=== PATIENT | male | born 1950 | race Caucasian/White ===

== ENCOUNTER → 2017-03-21 | Outpatient (CLI) | payer MEDICARE, OTHER ==
[~2017-03-21] MED LIST: ASPI81TA28 PO; METO100T44 PO; MULT-506 PO; NXM/40 PO; OMEG10007 PO; POLYSOL4 OP; PRED-301 PO; ZNTT/150 PO; [UNRECOGNIZED DRUG - CODE] PO
[2017-03-21 13:12] LABS: BASO % 0.2 %; BASO ABS # 0.03 K/uL (0-0.2); COMPLETE YES; EOS % 1.1 %; HEMATOCRIT 43.2 % (42-52); IG% 0.4 %; LYMPH % 19.7 %; LYMPH ABS # 2.49 K/uL (1.2-3.4); MEAN CELL VOLUME 96.2 fL (80-100); MEAN CORPUSCULAR HEMOGLOBIN 31.4 pg (25-34); MEAN CORPUSCULAR HGB CONC 32.6 g/dl (32-36); MEAN PLATELET VOLUME 10.2 fL (7.4-10.4); MONO % 5.4 %; NEUT % 73.2 %; PLATELET COUNT 107 K/uL (130-400); RED BLOOD COUNT 4.49 M/uL (4.7-6.1); WHITE BLOOD COUNT 12.67 K/uL (4.8-10.8)
[2017-03-21 13:24] LABS: CALCIUM 9.5 mg/dl (8.5-10.1)
[2017-03-21 13:32] LABS: ALT/SGPT 29 U/L (12-78); BLOOD UREA NITROGEN 19 mg/dl (7-18); BUN/CREATININE RATIO 17.3 (10-20); CARBON DIOXIDE 28 mmol/L (21-32); CHLORIDE 106 mmol/L (98-107); CHOLESTEROL 80 mg/dl (0-200); GLUCOSE 87 mg/dl (70-99); POTASSIUM 3.7 mmol/L (3.5-5.1); SODIUM 140 mmol/L (136-145); TRIGLYCERIDES 121 mg/dl (0-150); VERY LOW DENSITY LIPOPROT CALC 24 mg/dl
[2017-03-21 13:35] LABS: ALKALINE PHOSPHATASE 65 U/L (45-117); AST/SGOT 25 U/L (15-37); CHOLESTEROL/HDL RATIO 2.4; HDL CHOLESTEROL 33 mg/dl; LDL CHOLESTEROL CALCULATED 23 mg/dl
== END | disposition home or self-care (01) ==
LOC: C.LABMFLN 08:18
PROVIDERS: ATTEND Family Medicine
DX: K21.9 Gastro-esophageal reflux disease without esophagitis (principal); E78.5 Hyperlipidemia, unspecified

== ENCOUNTER → 2017-08-15 | Day surgery (SDC) | payer MEDICARE ==
[2017-07-31 11:45] VITALS: Ht 172.7 cm; Wt 77.3 kg
[~2017-08-15] VITALS: Ht 172.7 cm; Wt 77.3 kg
[~2017-08-15] MED LIST changes: +EpHEDrine SULFATE INJ 50 MG/ML AMP ONE; +FENTANYL CITRATE INJ 50 MCG/1 ML 2 ML VIAL ONE; +LIDOCAINE HCL 2% 2 ML VIAL (20MG/ML) ONE; -METO100T44 PO; +METO1TAB69 PO; +PHENYLEPHRINE HCL INJ 10 MG/ML VIAL ONE; +PROPOFOL IV EMULSION 10 MG/ML 20 ML VIAL IV ONE
--- NOTE | 2017-08-15 13:58 | Endo History and Physical ---
History & Physical Date of Service: Aug 15, 2017. Chief Complaint: Reflux, screening Referring Physician: Dr. Wilda Gonzalez History of Present Illness For EGD and colonoscopy Past Surgical History Hx Cardiac Surgery: No Hx Internal Defibrillator: No Hx Pacemaker: No Hx Abdominal Surgery: No Hx of Implantable Prosthesis: No Hx Post-Op Nausea and Vomiting: No Hx Cancer Surgery: No Hx Thoracic Surgery: Yes (MEDIASTINOSCOPY) Hx Orthopedic: No Hx Urinary Tract Surgery: No Family History None Social History Smoking Status: Never Smoker Hx Substance Use: No Hx Alcohol Use: Yes (1 DRINK/WEEK) Allergies Coded Allergies: Ibuprofen (Verified Allergy, Unknown, ITCHY, RED RASH, 08/15/17) Current Medications Reported Home Medications Medications Dose Route/Sig Max Daily Dose Days Date Category Dose Instructions Systane (Polyethylene Glycol-Propylene) 1 Thania Thania 1 Drops OP QID PRN 07/31/17 Reported Nifedipine 10 Mg Cap 1 Cap PO DAILY PRN 07/31/17 Reported Multivitamin (Multivitamins) Tab 1 Tab PO QAM 07/31/17 Reported Aspirin Ec (Aspirin) 81 Mg Tab 81 Mg PO QAM 07/31/17 Reported [place]-3 (Fish Oil) 1 Ea Cap 1 Cap PO BID 07/31/17 Reported Prednisone 5 Mg Tab 5 Mg PO QAM 07/31/17 Reported Toprol-Xl (Metoprolol Succinate) 100 Mg Tabcr 200 Mg PO QAM 07/31/17 Reported Zantac (Ranitidine HCl) 150 Mg Tab 150 Mg PO Q2D 07/31/17 Reported HS - ALTERNATING WITH NEXIUM Nexium (Esomeprazole Magnesium) 40 Mg Capcr 40 Mg PO Q2D 07/31/17 Reported HS - ALTERNATING WITH ZANTAC Vital Signs Weight (Kilograms): 77.27 Height (Feet): 5 Height (Inches): 8 Date Time Temp Pulse Resp B/P (MAP) Pulse Ox O2 Delivery O2 Flow Rate FiO2 08/15/17 13:20 36.5 92 16 127/74 (91) 94 Room Air Physical Exam General Appearance: WD/WN Respiratory/Chest: Respiratory effort: no dyspnea Cardiovascular: Heart Auscultation: RRR Abdomen: Inspection & Palpation: soft Assessment and Plan GERD and screening for EGD and colonoscopy
--- NOTE | 2017-08-15 14:22 | Discharge Instructions ---
Endoscopy Patient Instructions Date / Procedure(s) Performed Aug 15, 2017. Colonoscopy, EGD Allergy Information Coded Allergies: Ibuprofen (Verified Allergy, Unknown, ITCHY, RED RASH, 08/15/17) Discharge Date / Findings Aug 15, 2017. Diverticulosis, polyp, normal EGD Medication Instructions Stopped Medication(s): Patient was told to not take his fish oil and aspirin. Restart Stopped Medication(s): resume meds Reported Home Medications Medications Dose Route/Sig Max Daily Dose Days Date Category Dose Instructions Systane (Polyethylene Glycol-Propylene) 1 Thania Thania 1 Drops OP QID PRN 07/31/17 Reported Nifedipine 10 Mg Cap 1 Cap PO DAILY PRN 07/31/17 Reported Multivitamin (Multivitamins) Tab 1 Tab PO QAM 07/31/17 Reported Aspirin Ec (Aspirin) 81 Mg Tab 81 Mg PO QAM 07/31/17 Reported [place]-3 (Fish Oil) 1 Ea Cap 1 Cap PO BID 07/31/17 Reported Prednisone 5 Mg Tab 5 Mg PO QAM 07/31/17 Reported Toprol-Xl (Metoprolol Succinate) 100 Mg Tabcr 200 Mg PO QAM 07/31/17 Reported Zantac (Ranitidine HCl) 150 Mg Tab 150 Mg PO Q2D 07/31/17 Reported HS - ALTERNATING WITH NEXIUM Nexium (Esomeprazole Magnesium) 40 Mg Capcr 40 Mg PO Q2D 07/31/17 Reported HS - ALTERNATING WITH ZANTAC Provider Instructions Activity Restrictions - No exercising or heavy lifting for 24 hours. - Do not drink alcohol the day of the procedure. - Do not drive a car or operate machinery until the day after the procedure. - Do not make any important decisions or sign important papers in 24 hours after the procedure. Following Day: - Return to full activity which may include returning to work/school. Diet Start your diet with liquids and light foods (jello, soup, juice, toast). Then eat your usual diet if not nauseated. Treatment For Common After Affects For mild abdominal pain, bloating, or excessive gas: - Rest - Eat lightly - Lie on right side Follow-Up Information Follow-up with Dr. Wilda Gonzalez as scheduled Anesthesia Information What You Should Know You have had a procedure that required some medicine to reduce anxiety and discomfort. This treatment is called moderate sedation. After receiving the treatment, you may be sleepy, but you will be able to breathe on your own. The effects of the treatment may last for several hours. Follow these instructions along with Activity/Diet recommendations noted above: * Do NOT do anything where dizziness or clumsiness would be dangerous. * Rest quietly at home today, then you can be up and about tomorrow. * Have a responsible person stay with you the rest of today. * You may have had an I.V. today. If so, you may take the dressing off later today. Recommendations Call your doctor if: * Trouble breathing * Continuous vomiting for more than 24 hours * Temperature above 101 degrees * Severe abdominal pain or bloating * Pain not relieved by pain medicine ordered * There is increased drainage or redness from any incision * A large amount of rectal bleeding greater than 2-3 tablespoons. (If you had a polyp/s removed or have hemorrhoids, a small amount of blood - from the rectum is to be expected.) * You have any unanswered questions or concerns. IN THE EVENT OF A SERIOUS EMERGENCY, GO TO THE NEAREST EMERGENCY ROOM Your discharge instructions were prepared by provider Reed Scales. Patient Instructions Signature Page Blayne Conley Patient (or Guardian) Signature/Date: I have read and understand the instructions given to me by my caregivers. Caregiver/RN/Doctor Signature/Date: The above-named patient and/or guardian has received patient instructions on this date. + Original Patient Signature Page (only) stays with chart. Please make copy for patient.
--- NOTE | 2017-08-15 14:26 | GI REPORT ---
Procedure Date: 08/15/2017 1:30 PM Procedure: Upper GI endoscopy Indications: Heartburn, Suspected gastro-esophageal reflux disease Medicines: Fentanyl 50 micrograms IV, Propofol total dose 150 mg IV Complications: No immediate complications. Estimated Blood Loss: Estimated blood loss: none. Procedure: Pre-Anesthesia Assessment: - Prior to the procedure, a History and Physical was performed, and patient medications, allergies and sensitivities were reviewed. The patient's tolerance of previous anesthesia was reviewed. - The risks and benefits of the procedure and the sedation options and risks were discussed with the patient. All questions were answered and informed consent was obtained. After obtaining informed consent, the endoscope was passed under direct vision. Throughout the procedure, the patient's blood pressure, pulse, and oxygen saturations were monitored continuously. The On-site loaner was introduced through the mouth, and advanced to the second part of duodenum. The upper GI endoscopy was accomplished without difficulty. The patient tolerated the procedure well. Findings: The esophagus was normal. The stomach was normal. The examined duodenum was normal. Impression: - Normal esophagus. - Normal stomach. - Normal examined duodenum. - No specimens collected. Recommendation: - Discharge patient to home (ambulatory). - Continue present medications. - Return to primary care physician PRN. Reed Scales M.D. Reed Scales MD 08/15/2017 2:24:57 PM This report has been signed electronically. Note Initiated On: 08/15/2017 1:30 PM I attest to the content of the Intraoperative Record and orders documented therein, exceptions below
--- NOTE | 2017-08-15 14:27 | GI REPORT ---
Procedure Date: 08/15/2017 1:29 PM Procedure: Colonoscopy Indications: Screening for colorectal malignant neoplasm Medicines: Fentanyl 50 micrograms IV, Propofol total dose 150 mg IV Complications: No immediate complications. Estimated Blood Loss: Estimated blood loss was minimal. Procedure: Pre-Anesthesia Assessment: - Prior to the procedure, a History and Physical was performed, and patient medications, allergies and sensitivities were reviewed. The patient's tolerance of previous anesthesia was reviewed. - The risks and benefits of the procedure and the sedation options and risks were discussed with the patient. All questions were answered and informed consent was obtained. After I obtained informed consent, the scope was passed under direct vision. Throughout the procedure, the patient's blood pressure, pulse, and oxygen saturations were monitored continuously. The scope was introduced through the anus and advanced to the cecum, identified by appendiceal orifice and ileocecal valve. The colonoscopy was performed without difficulty. The patient tolerated the procedure well. The quality of the bowel preparation was good. Findings: A few diverticula were found in the sigmoid colon. A 4 mm polyp was found at the hepatic flexure. The polyp was sessile. The polyp was removed with a cold biopsy forceps. Resection and retrieval were complete. Estimated blood loss was minimal. Impression: - Diverticulosis in the sigmoid colon. - One 4 mm polyp at the hepatic flexure, removed with a cold biopsy forceps. Resected and retrieved. Recommendation: - Discharge patient to home (ambulatory). - Continue present medications. - Await pathology results. - Return to primary care physician JANEN. Reed Scales M.D. Reed Scales MD 08/15/2017 2:26:45 PM This report has been signed electronically. Note Initiated On: 08/15/2017 1:29 PM I attest to the content of the Intraoperative Record and orders documented therein, exceptions below
--- NOTE | 2017-08-15 14:48 | Anesthesiology Progress Note ---
Anesthesia Post Op Note Date & Time Aug 15, 2017 at 14:48 Vital Signs Pain Intensity: 0 Vital Signs Past 12 Hours Date Time Temp Pulse Resp B/P (MAP) Pulse Ox O2 Delivery O2 Flow Rate FiO2 08/15/17 13:20 36.5 92 16 127/74 (91) 94 Room Air Notes Mental Status: alert / awake / arousable, participated in evaluation Pt Amnestic to Procedure: Yes Nausea / Vomiting: adequately controlled Pain: adequately controlled Airway Patency, RR, SpO2: stable & adequate BP & HR: stable & adequate Hydration State: stable & adequate Anesthetic Complications: no major complications apparent
[2017-08-15 14:59] VITALS: BP 101/57; PULSE 74; O2SAT 96
== END | disposition home or self-care (01) ==
LOC: C.GI 12:58
PROVIDERS: ATTEND Internal Medicine Gastroenterology
DX: Z12.11 Encounter for screening for malignant neoplasm of colon (principal); D12.3 Benign neoplasm of transverse colon; R12 Heartburn; K57.30 Diverticulosis of large intestine without perforation or abscess without bleeding; Z79.82 Long term (current) use of aspirin; Z79.52 Long term (current) use of systemic steroids; Z79.899 Other long term (current) drug therapy

== ENCOUNTER 2018-02-23 13:41 | Observation (INO) | payer MEDICARE ==
[~2018-02-23] VITALS: Ht 175.3 cm; Wt 73.5 kg
[~2018-02-23 13:41] MED LIST changes: -EpHEDrine SULFATE INJ 50 MG/ML AMP ONE; -FENTANYL CITRATE INJ 50 MCG/1 ML 2 ML VIAL ONE; -LIDOCAINE HCL 2% 2 ML VIAL (20MG/ML) ONE; +METO100T44 PO; -METO1TAB69 PO; -PHENYLEPHRINE HCL INJ 10 MG/ML VIAL ONE; -PROPOFOL IV EMULSION 10 MG/ML 20 ML VIAL IV ONE; +RANI150T85 PO; -ZNTT/150 PO
--- NOTE | 2018-02-23 16:29 | EMERGENCY ROOM VISIT NOTE ---
History Report prepared by Ange: Howard Davis Under the Supervision of: Dr. Hipolito Garcia M.D. First contact with patient: 16:05 Chief Complaint: SHORTNESS OF BREATH Stated Complaint: EDEMA, SOB, BLOATING Nursing Triage Summary: having shortness of breath for the past 2 weeks. having swelling in bilateral lower legs and feet. no hx of chf has hxof afib. sleeping elevated for years. fatigue with walking 1 block History of Present Illness The patient is a 67 year old male who presents to the Emergency Room with complaints of worsening SOB for the past 2 weeks. He has chronic SOB, bilateral lower extremity edema, and cough that have acutely worsened. He states that walking uphill worsens his SOB. He states that he has regular intake however, he feels bloated after eating. He is on 200 mg of Metoprolol once a day and 81 mg of Aspirin. He has a history significant for Afib and scleroderma. 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 His last stress test was several years ago. He denies recent changes in his medication. He denies leg pain, chest pain, urinary symptoms, bloody stools, and fevers. He denies a history of blood clots and stents. Of note, he came back from a vacation in [place] and drove back up to [place]. Source of History: patient, spouse/significant other Onset: 2 weeks ago Position: other (lungs) Symptom Intensity: pain rated as 0/10 Timing: worsening Modifying Factors (Worsening): movement Associated Symptoms: No fevers, No chest pain, No melena, No urinary symptoms Note: Patient reports bilateral lower extremity edema. Patient denies leg pain. Review of Systems See HPI for pertinent positives & negatives. A total of 10 systems reviewed and were otherwise negative. Past Medical & Surgical Medical Problems: (1) Scleroderma Social History Smoking Status: Never Smoker Alcohol Use: occasionally Drug Use: none Marital Status: Housing Status: lives with significant other Current/Historical Medications Scheduled Aspirin (Aspirin Ec), 81 MG PO QAM Coenzyme Q10 (Ubidecarenone) (Coq-10), 50 MG PO BID Esomeprazole Magnesium (Nexium), 40 MG PO DAILY Fish Oil (Tangent-3), 1 CAP PO BID Metoprolol Succinate (Toprolxl (Toprol-Xl), 200 MG PO DAILY Multivitamin (Multivitamin), 1 TAB PO QAM Prednisone (Prednisone), 5 MG PO QAM Scheduled PRN Nifedipine (Nifedipine), 1 CAP PO DAILY PRN for WINTER MONTHS Polyethylene Glycol-Propylene (Systane), 1 DROPS OP QID PRN for DRY EYES Allergies Coded Allergies: Ibuprofen (Verified Allergy, Unknown, ITCHY, RED RASH, 08/15/17) Physical Exam Vital Signs Date Time Temp Pulse Resp B/P (MAP) Pulse Ox O2 Delivery O2 Flow Rate FiO2 02/23/18 19:32 74 20 112/77 96 Room Air 02/23/18 17:46 63 20 125/79 99 Room Air 02/23/18 16:22 80 20 129/85 98 Room Air 02/23/18 13:53 96 Room Air 02/23/18 13:52 36.4 92 18 105/74 95 Room Air Physical Exam GENERAL: Patient is tired appearing and in mild distress. EYES: No scleral icterus, unremarkable pupils. ENT: Mucous membranes moist, no nasal congestion. NECK: No masses appreciated, no meningismus, trachea is midline. RESPIRATORY: Mildly dyspneic. Minimal wheezing with prolonged expiratory time bilaterally. No rhonchi. Mild crackles at bases. Clear to auscultation and equal bilaterally. CARDIOVASCULAR: Tachycardiac and irregular rhythm. Poor pulses bilaterally at the radius. Strong pulses of bilateral lower feet. No murmurs, rubs, gallops appreciated. GASTROINTESTINAL: Mild lower abdominal edema. Abdomen soft, nontender, no peritonitis. Bowel sounds positive. No masses appreciated. BACK: Trace lower back edema. No midline tenderness, no CVA tenderness EXTREMITIES: Pitting edema bilateral lower legs. Discoloration of bilateral hands. Normal motion all extremities, no cyanosis. NEUROLOGIC: Alert and oriented, no acute motor or sensory deficits, no focal weakness, cranial nerves grossly intact. SKIN: Stretching of skins over hands and feet consistent with scleroderma. No rash, no jaundice, no diaphoresis. Medical Decision & Procedures ER Provider Diagnostic Interpretation: Radiology results and stated below per my review and radiologist interpretation: CHEST ONE VIEW PORTABLE CLINICAL HISTORY: Shortness of breath. COMPARISON STUDY: No previous studies for comparison. FINDINGS: The heart is enlarged. There is elevation of the interstitium consistent with mild interstitial edema. There is blunting of the right lateral costophrenic angle suggesting a small effusion. There is no lobar consolidation.[ IMPRESSION: Cardiomegaly and radiographic evidence of mild congestive failure/fluid overload with small right pleural effusion Electronically signed by: Deep Main M.D. 02/23/2018 4:38 PM Dictated Date/Time: 02/23/2018 4:37 PM ULTRASOUND VENOUS DOPPLER LWR EXT BILA CLINICAL HISTORY: bilateral lower leg swelling recent travel [place] COMPARISON STUDY: No previous studies for comparison. FINDINGS: Real-time and color flow Doppler imaging were performed. Flow was seen within the femoral, popliteal and calf veins with no intraluminal thrombus demonstrated. The saphenous vein is patent. There is a 13 x 25 x 7 mm left popliteal cyst. IMPRESSION: No evidence of lower extremity DVT. Electronically signed by: Deep Main M.D. 02/23/2018 5:31 PM Dictated Date/Time: 02/23/2018 5:30 PM Laboratory Results 02/23/18 16:40 Red Blood Count 4.41, Mean Corpuscular Volume 95.7, Mean Corpuscular Hemoglobin 32.0, Mean Corpuscular Hemoglobin Concent 33.4, Mean Platelet Volume 9.9, Neutrophils (%) (Auto) 83.8, Lymphocytes (%) (Auto) 11.9, Monocytes (%) (Auto) 3.5, Eosinophils (%) (Auto) 0.3, Basophils (%) (Auto) 0.2, Neutrophils # (Auto) 8.20, Lymphocytes # (Auto) 1.16, Monocytes # (Auto) 0.34, Eosinophils # (Auto) 0.03, Basophils # (Auto) 0.02 02/23/18 16:40 Test 02/23/18 16:40 White Blood Count 9.78 K/uL (4.8-10.8) Red Blood Count 4.41 M/uL (4.7-6.1) Hemoglobin 14.1 g/dL (14.0-18.0) Hematocrit 42.2 % (42-52) Mean Corpuscular Volume 95.7 fL (80-100) Mean Corpuscular Hemoglobin 32.0 pg (25-34) Mean Corpuscular Hemoglobin Concent 33.4 g/dl (32-36) Platelet Count 110 K/uL (130-400) Mean Platelet Volume 9.9 fL (7.4-10.4) Neutrophils (%) (Auto) 83.8 % Lymphocytes (%) (Auto) 11.9 % Monocytes (%) (Auto) 3.5 % Eosinophils (%) (Auto) 0.3 % Basophils (%) (Auto) 0.2 % Neutrophils # (Auto) 8.20 K/uL (1.4-6.5) Lymphocytes # (Auto) 1.16 K/uL (1.2-3.4) Monocytes # (Auto) 0.34 K/uL (0.11-0.59) Eosinophils # (Auto) 0.03 K/uL (0-0.5) Basophils # (Auto) 0.02 K/uL (0-0.2) RDW Standard Deviation 57.5 fL (36.4-46.3) RDW Coefficient of Variation 16.4 % (11.5-14.5) Immature Granulocyte % (Auto) 0.3 % Immature Granulocyte # (Auto) 0.03 K/uL (0.00-0.02) Prothrombin Time 13.1 SECONDS (9.0-12.0) Prothromb Time International Ratio 1.3 (0.9-1.1) Activated Partial Thromboplast Time 30.1 SECONDS (21.0-31.0) Partial Thromboplastin Ratio 1.2 Anion Gap 7.0 mmol/L (3-11) Est Creatinine Clear Calc Drug Dose 65.2 ml/min Estimated GFR () 80.1 Estimated GFR (Non- 69.1 BUN/Creatinine Ratio 16.1 (10-20) Calcium Level 8.8 mg/dl (8.5-10.1) Magnesium Level 2.0 mg/dl (1.8-2.4) Total Bilirubin 1.3 mg/dl (0.2-1) Direct Bilirubin 0.3 mg/dl (0-0.2) Aspartate Amino Transf (AST/SGOT) 29 U/L (15-37) Alanine Aminotransferase (ALT/SGPT) 26 U/L (12-78) Alkaline Phosphatase 66 U/L (45-117) Total Creatine Kinase 139 U/L (39-308) Creatine Kinase MB 4.3 ng/ml (0.5-3.6) Creatine Kinase MB Ratio 3.1 (0-3.0) Troponin I 0.027 ng/ml (0-0.045) Pro-B-Type Natriuretic Peptide 3639 pg/ml (0-900) Total Protein 7.7 gm/dl (6.4-8.2) Albumin 3.7 gm/dl (3.4-5.0) Thyroid Stimulating Hormone (TSH) 1.330 uIu/ml (0.300-4.500) Laboratory results as reviewed by me. Medications Administered Medications (Trade) Dose Ordered Sig/Neto Route Start Time Stop Time Status Last Admin Dose Admin Furosemide (Lasix Inj) 40 mg NOW STAT IV 02/23/18 17:55 02/23/18 17:57 DC 02/23/18 18:42 40 MG ECG Per My Interpretation Indication: SOB/dyspnea Rate (beats per minute): 90 Rhythm: atrial fibrillation Findings: PVC, no acute ischemic change, other (QTc of 479) ED Course 1605: The patient was evaluated in room B7. A complete history and physical exam was performed. 1722: The patient is at ultrasound. I discussed the case and management plan with his . 1743: Discussed the patient's case with Dr. Linda. He feels that patient should be admitted for IV Lasix, echo, and further workup. The patient will be evaluated for further treatment and disposition. 1755: I checked on the patient and he is agreeable to coming into the hospital. 1758: I spoke with Dr. Jessika Mcdonald and discussed the patient's case with her. 1800: Upon reevaluation, the patient is resting comfortably. Discussed results and treatment plan with the patient. He verbalized understanding and agreement with the treatment plan. The patient will be evaluated for further management. Medical Decision Differential: Infectious, Reactive Airway Disease, Pneumonia, Pneumothorax, COPD , CHF, ACS, Pulmonary Embolism, MSK, GI, Dissection, amongst other etiologies entertained. 67 yr old male with history of scleroderma/Raynauds as well as afib arrives for evaluation of progressively worsening SHOB on exertion associated with increasing bilateral leg swelling. Notes can't walk down hallway without severe symptoms. Just walking back from triage HR spikes to 130s in afib. Not anticoagulated due to stopping Coumadin years ago to avoid repeat draws. Not hypoxic and at rest HR looks pretty good. I do not feel this is PE and with negative dopplers of legs I do not feel CTA PE Necessary emergently. EKG without ischemia and trop wnl. Bili mildly up and with leg swelling and CXR congestion suspect this is heart failure related (BNP also elevated). There is likely element of pulmonary hypertension on top of all this given his history. He looks well when laying still but with ambulation he is failing. Discussed with cards who agrees with coming in to hospital. Given 40mg IV lasix to begin treatment. Hospitalist consulted for further management of patient. Medication Reconcilliation Current Medication List: was personally reviewed by me Blood Pressure Screening Patient's blood pressure: Normal blood pressure Blood pressure disposition: Elevated BP felt to be situational Consults Time Called: 174 Consulting Physician: Dr. Linda Returned Call: 174 Discussed the patient's case. He feels that patient should be admitted for IV Lasix, echo, and further workup. The patient will be evaluated for further treatment and disposition. Additional Consults: Time Called: 175 Consulted Physician: Dr. Jessika Mcdonald Returned Call: [phone] Additional Comments: Discussed the patient's case. The patient will be evaluated for further treatment and disposition. Impression Primary Impression: Congestive heart failure Additional Impression: Dyspnea on exertion Scribe Attestation The scribe's documentation has been prepared under my direction and personally reviewed by me in its entirety. I confirm that the note above accurately reflects all work, treatment, procedures, and medical decision making performed by me. Departure Information Dispostion Being Evaluated By Hospitalist Referrals Wilda Gonzalez M.D. (PCP) Patient Instructions My [facility] Problem Qualifiers
--- NOTE | 2018-02-23 16:39 | DIAGNOSTIC IMAGING REPORT ---
CHEST ONE VIEW PORTABLE CLINICAL HISTORY: Shortness of breath. COMPARISON STUDY: No previous studies for comparison. FINDINGS: The heart is enlarged. There is elevation of the interstitium consistent with mild interstitial edema. There is blunting of the right lateral costophrenic angle suggesting a small effusion. There is no lobar consolidation.[ IMPRESSION: Cardiomegaly and radiographic evidence of mild congestive failure/fluid overload with small right pleural effusion Electronically signed by: Deep Main M.D. 02/23/2018 4:38 PM Dictated Date/Time: 02/23/2018 4:37 PM
[2018-02-23 17:10] LABS: BASO % 0.2 %; BASO ABS # 0.02 K/uL (0-0.2); EOS % 0.3 %; EOS ABS # 0.03 K/uL (0-0.5); HEMATOCRIT 42.2 % (42-52); HEMOGLOBIN 14.1 g/dL (14.0-18.0); IG# 0.03 K/uL (0.00-0.02); LYMPH % 11.9 %; LYMPH ABS # 1.16 K/uL (1.2-3.4); MEAN CELL VOLUME 95.7 fL (80-100); MEAN CORPUSCULAR HGB CONC 33.4 g/dl (32-36); MEAN PLATELET VOLUME 9.9 fL (7.4-10.4); MONO % 3.5 %; MONO ABS # 0.34 K/uL (0.11-0.59); NEUT % 83.8 %; PLATELET COUNT 110 K/uL (130-400); RED CELL DISTRIBUTION WIDTH CV 16.4 % (11.5-14.5); RED CELL DISTRIBUTION WIDTH SD 57.5 fL (36.4-46.3); WHITE BLOOD COUNT 9.78 K/uL (4.8-10.8)
[2018-02-23 17:19] LABS: INR 1.3 (0.9-1.1); PTT PATIENT 30.1 SECONDS (21.0-31.0)
[2018-02-23 17:27] LABS: ALBUMIN 3.7 gm/dl (3.4-5.0); CALCIUM 8.8 mg/dl (8.5-10.1); CREATININE 1.1 mg/dl (0.60-1.40)
--- NOTE | 2018-02-23 17:33 | DIAGNOSTIC IMAGING REPORT ---
ULTRASOUND VENOUS DOPPLER LWR EXT BILA CLINICAL HISTORY: bilateral lower leg swelling recent travel [place] COMPARISON STUDY: No previous studies for comparison. FINDINGS: Real-time and color flow Doppler imaging were performed. Flow was seen within the femoral, popliteal and calf veins with no intraluminal thrombus demonstrated. The saphenous vein is patent. There is a 13 x 25 x 7 mm left popliteal cyst. IMPRESSION: No evidence of lower extremity DVT. Electronically signed by: Deep Main M.D. 02/23/2018 5:31 PM Dictated Date/Time: 02/23/2018 5:30 PM
[2018-02-23 17:38] LABS: CKMB 4.3 ng/ml (0.5-3.6); TOTAL PROTEIN 7.7 gm/dl (6.4-8.2)
[2018-02-23] MEDS ORDERED: METO200T32 PO (17:51)
[2018-02-23] MEDS ORDERED: COEN50CA9 PO (17:51)
[2018-02-23] MEDS ORDERED: FUROSEMIDE 40 MG/4 ML VIAL IV STA (17:55)
[2018-02-23] MEDS ORDERED: NIFEdipine 10 MG CAP PO PRN (19:00)
[2018-02-23] MEDS ORDERED: ALUMINUM/MAGNESIUM/SIMETH (MAALOX MAX) 30 ML UDC PO PRN (19:00)
[2018-02-23] MEDS ORDERED: ACETAMINOPHEN 325 MG TAB PO PRN (19:00)
[2018-02-23] MEDS ORDERED: MoRPHine SULFATE 2 MG/ML CARP IV PRN (19:00)
[2018-02-23] MEDS ORDERED: ONDANSETRON INJ 2 MG/ML 2 ML VIAL IV PRN (19:00)
[2018-02-23] MEDS ORDERED: NITROGLYCERIN 0.4 MG SL PER TAB CHARGE SL PRN (19:00)
[2018-02-23] MEDS ORDERED: MAGNESIUM HYDROXIDE SUSP 30 ML UDC PO PRN (19:00)
[2018-02-23] MEDS ORDERED: POLYETHYLENE (MIRALAX) 17 GM PACK PO PRN (19:00)
--- NOTE | 2018-02-23 19:14 | History and Physical ---
History & Physical Date & Time of Service: Feb 23, 2018 at 18:54 Chief Complaint: Edema, Sob, Bloating Primary Care Physician: Wilda Gonzalez M.D. History of Present Illness Source: patient, family (), clinic records, hospital records Patient is a pleasant 67 y/o male, with PMHx of CREST scleroderma, interstitial pulmonary fibrosis, Raynaud's, permanent a.fib, and GERD, who presented to the ED because of progressive SOB w/ exertion x2 weeks. He has always had difficulty with walking up an incline but over the last two weeks he is unable to walk a flat surface without becoming extremely SOB. He also notes leg swelling/heaviness and abdominal bloating. He denies any h/o CHF. He notes episodes of similar symptoms in the past but nothing was ever done about it. He does have a h/o a.fib. He was on Coumadin in the past but didn't like routine INR checks. He has recently started seeing Dr. Diaz- discussed NOAC but preferred to just continue ASA daily. He now is considering starting NOAC but would like to further discuss w/ cardiology. He follows w/ pulmonary and rheumatology in [place]. He recently returned from [place]. Does admit to poor/ overeating while on vacation. Denies any h/o PE, DVT, TIA, CVA. Patient denies any fever, chills, sweats, lightheadedness, dizziness, vision changes, CP, palpitations, wheezing, cough, abdominal pain, nausea, vomiting, diarrhea, urinary symptoms, melena, numbness/tingling, weakness, muscle/joint pain, anxiety/depression, active bleeding, or new skin discoloration/changes. Past Medical/Surgical History Medical Problems: CREST scleroderma interstitial pulmonary fibrosis Raynaud's permanent a.fib HLD GERD Family History Mother- CVA Social History Smoking Status: Never Smoker Drug Use: none Marital Status: Allergies Coded Allergies: Ibuprofen (Verified Allergy, Unknown, ITCHY, RED RASH, 08/15/17) Home Medications Scheduled Aspirin (Aspirin Ec), 81 MG PO QAM Coenzyme Q10 (Ubidecarenone) (Coq-10), 50 MG PO BID Esomeprazole Magnesium (Nexium), 40 MG PO DAILY Fish Oil ([place]-3), 1 CAP PO BID Metoprolol Succinate (Toprolxl (Toprol-Xl), 200 MG PO DAILY Multivitamin (Multivitamin), 1 TAB PO QAM Prednisone (Prednisone), 5 MG PO QAM Scheduled PRN Nifedipine (Nifedipine), 1 CAP PO DAILY PRN for WINTER MONTHS Polyethylene Glycol-Propylene (Systane), 1 DROPS OP QID PRN for DRY EYES Physical Exam Vital Signs Date Time Temp Pulse Resp B/P (MAP) Pulse Ox O2 Delivery O2 Flow Rate FiO2 02/23/18 17:46 63 20 125/79 99 Room Air 02/23/18 16:22 80 20 129/85 98 Room Air 02/23/18 13:53 96 Room Air 02/23/18 13:52 36.4 92 18 105/74 95 Room Air General Appearance: WD/WN, no apparent distress Head: normocephalic, atraumatic Eyes: normal inspection, PERRL ENT: hearing grossly normal Neck: supple Respiratory/Chest: no respiratory distress, no accessory muscle use, + crackles (mild, bilateral lung bases) Cardiovascular: + irregularly irregular (rate controlled ) Abdomen/GI: normal bowel sounds, non tender, soft Back: normal inspection Extremities/Musculoskelatal: no calf tenderness, + swelling (+1 pitting edema BLEs ) Neurologic/Psych: alert, normal mood/affect, oriented x 3 Skin: normal color, warm/dry, no rash Diagnostics Laboratory Results Results Past 24 Hours Test 02/23/18 16:40 Range/Units White Blood Count 9.78 4.8-10.8 K/uL Red Blood Count 4.41 4.7-6.1 M/uL Hemoglobin 14.1 14.0-18.0 g/dL Hematocrit 42.2 42-52 % Mean Corpuscular Volume 95.7 80-100 fL Mean Corpuscular Hemoglobin 32.0 25-34 pg Mean Corpuscular Hemoglobin Concent 33.4 32-36 g/dl Platelet Count 110 130-400 K/uL Mean Platelet Volume 9.9 7.4-10.4 fL Neutrophils (%) (Auto) 83.8 % Lymphocytes (%) (Auto) 11.9 % Monocytes (%) (Auto) 3.5 % Eosinophils (%) (Auto) 0.3 % Basophils (%) (Auto) 0.2 % Neutrophils # (Auto) 8.20 1.4-6.5 K/uL Lymphocytes # (Auto) 1.16 1.2-3.4 K/uL Monocytes # (Auto) 0.34 0.11-0.59 K/uL Eosinophils # (Auto) 0.03 0-0.5 K/uL Basophils # (Auto) 0.02 0-0.2 K/uL RDW Standard Deviation 57.5 36.4-46.3 fL RDW Coefficient of Variation 16.4 11.5-14.5 % Immature Granulocyte % (Auto) 0.3 % Immature Granulocyte # (Auto) 0.03 0.00-0.02 K/uL Prothrombin Time 13.1 9.0-12.0 SECONDS Prothromb Time International Ratio 1.3 0.9-1.1 Activated Partial Thromboplast Time 30.1 21.0-31.0 SECONDS Partial Thromboplastin Ratio 1.2 Sodium Level 140 136-145 mmol/L Potassium Level 4.0 3.5-5.1 mmol/L Chloride Level 105 98-107 mmol/L Carbon Dioxide Level 28 21-32 mmol/L Anion Gap 7.0 3-11 mmol/L Blood Urea Nitrogen 18 7-18 mg/dl Creatinine 1.10 0.60-1.40 mg/dl Est Creatinine Clear Calc Drug Dose 65.2 ml/min Estimated GFR () 80.1 Estimated GFR (Non- 69.1 BUN/Creatinine Ratio 16.1 10-20 Random Glucose 88 70-99 mg/dl Calcium Level 8.8 8.5-10.1 mg/dl Magnesium Level 2.0 1.8-2.4 mg/dl Total Bilirubin 1.3 0.2-1 mg/dl Direct Bilirubin 0.3 0-0.2 mg/dl Aspartate Amino Transf (AST/SGOT) 29 15-37 U/L Alanine Aminotransferase (ALT/SGPT) 26 12-78 U/L Alkaline Phosphatase 66 45-117 U/L Total Creatine Kinase 139 39-308 U/L Creatine Kinase MB 4.3 0.5-3.6 ng/ml Creatine Kinase MB Ratio 3.1 0-3.0 Troponin I 0.027 0-0.045 ng/ml Pro-B-Type Natriuretic Peptide 3639 0-900 pg/ml Total Protein 7.7 6.4-8.2 gm/dl Albumin 3.7 3.4-5.0 gm/dl Thyroid Stimulating Hormone (TSH) 1.330 0.300-4.500 uIu/ml Diagnostic Radiology CHEST ONE VIEW PORTABLE CLINICAL HISTORY: Shortness of breath. COMPARISON STUDY: No previous studies for comparison. FINDINGS: The heart is enlarged. There is elevation of the interstitium consistent with mild interstitial edema. There is blunting of the right lateral costophrenic angle suggesting a small effusion. There is no lobar consolidation.[ IMPRESSION: Cardiomegaly and radiographic evidence of mild congestive failure/fluid overload with small right pleural effusion Electronically signed by: Deep Main M.D. 02/23/2018 4:38 PM Dictated Date/Time: 02/23/2018 4:37 PM The status of this report is Signed. Draft = Not yet reviewed or approved by Radiologist. Signed = Reviewed and approved by Radiologist. ULTRASOUND VENOUS DOPPLER LWR EXT BILA CLINICAL HISTORY: bilateral lower leg swelling recent travel [place] COMPARISON STUDY: No previous studies for comparison. FINDINGS: Real-time and color flow Doppler imaging were performed. Flow was seen within the femoral, popliteal and calf veins with no intraluminal thrombus demonstrated. The saphenous vein is patent. There is a 13 x 25 x 7 mm left popliteal cyst. IMPRESSION: No evidence of lower extremity DVT. Electronically signed by: Deep Main M.D. 02/23/2018 5:31 PM Dictated Date/Time: 02/23/2018 5:30 PM The status of this report is Signed. Draft = Not yet reviewed or approved by Radiologist. Signed = Reviewed and approved by Radiologist. EKG HUGO MILLER ID:[id number] 23-FEB-2018 16:27:00 [facility] Atrial fibrillation with premature ventricular or aberrantly conducted complexes Low voltage QRS Incomplete right bundle branch block Cannot rule out Anterior infarct , age undetermined Nonspecific ST and T wave abnormality Abnormal ECG No previous ECGs available Confirmed by JOHNY GARCIA MD ([id number]) on 02/23/2018 4:38:32 PM 25mm/s 10mm/mV 150Hz 8.0 SP2 12SL 241 AMARILIS: 13 Referred by: Raymon Diaz Confirmed By: MD RADHA MCCLAIN Vent. rate 90 BPM OH interval * ms QRS duration 114 ms QT/QTc 392/479 ms P-R-T axes * -25 228 1950 (67 yr) Male Room:B7 Loc:[facility] Administrator:THERESE REDDY Test ind: Impression Assessment and Plan Patient is a pleasant 67 y/o male, with PMHx of CREST scleroderma, interstitial pulmonary fibrosis, Raynaud's, permanent a.fib, HLD, and GERD, who presented to the ED because of progressive SOB w/ exertion x2 weeks. CHF exacerbation, unsure of type: - Admit to tele for cardiac monitoring - Trend cardiac enzymes - EKG QAM and PRN for chest pain - O2 protocol - IV Lasix 40 mg BID - Monitor I&Os and daily weights- base weight 165-170lbs, currently 176lbs - ECHO in 2017- preserved EF, no diastolic dysfunction noted - Bilateral venous Doppler- negative for DVT - Consult cardiology, appreciate recommendations Permanent a.fib- rate controlled, HLD: Continue Metoprolol 200 mg daily, ASA daily, Crestor 5 mg daily, Fish Oil CREST scleroderma, interstitial pulmonary fibrosis: Continue Prednisone 5 mg daily Raynaud's: Continue Nifedipine 10 mg daily PRN GERD: Continue Nexium and Zantac DVT prophylaxis: Lovenox SQ daily Code status: LEVEL I, FULL Dispo: From home, lives w/ - no discharge needs anticipated Resuscitation Status LEVEL I, FULL VTE Prophylaxis Will order VTE Prophylaxis: Yes Reviewed: Pt Seen/Exam by Me History Physician Marketing And Communications Officer Supervision Note: I interviewed and examined the patient. Discussed with FABRICE Penaloza and agree with findings and plan as documented in the note. Any exceptions or clarifications are listed here: Patient presents with 2 weeks of progressively worsening shortness of breath, lower extremity edema. He reports several months of feeling lightheaded with standing. He denies any recent changes in his medications. He did recently travel to [place] and returned 2 days ago;his symptoms started gradually while he was on his trip. He denies any chest pain or pressure at all. He was found to have evidence of CHF on his chest x-ray with a small right pleural effusion, lower extremity edema. He was in rapid A. fib with minimal exertion with rates to the 130s, that resolved with rest back down to the 60s-70s. His proBNP was significantly elevated at 3600. He was not hypoxic. Vitals reviewed Gen: AAOx3, NAD HEENT: anicteric sclerae, EOMI CV: Irregularly irregular with normal rate no mgr nl S1S2 Pulm: Positive Velcro-like crackles at the bases and mid lung abdullahi bilaterally , no wheezes or rhonchi Abd: +BS soft NT ND no masses or hernias Ext: 1+ pitting edema of the legs to the knees bilaterally, no calf tenderness, negative Homans sign, 2+ DP pulses Skin: no rashes, warm/dry, shiny and taut skin of the lower extremities, no digital ulcerations noted Neuro: full strength throughout Patient is a 67-year-old male with a history of crest syndrome on chronic prednisone, permanent atrial fibrillation not on anticoagulation due to previous refusal, pulmonary fibrosis, GERD, here with acute CHF, unknown type. Also with rapid atrial fibrillation with minimal exertion. With pulmonary fibrosis, he may have right-sided heart failure/cor pulmonale. Bilateral lower extremity venous Dopplers negative for DVT. Given his presentation and other clinical findings, I do not suspect acute PE at this time. -Admit to telemetry -IV diuresis with Lasix -Check echocardiogram -Consult cardiology -Is already on very high dose of Toprol-XL, appreciate cardiology recommendations for improved rate control of A. fib -Follow electrolytes and replace potassium as needed -Continue PPI -Check orthostatics given lightheadedness with standing for many months Documented By: Jessika Mcdonald
[2018-02-23 20:31] VITALS: BP 101/41; PULSE 89; TEMP 36.6; O2SAT 95; Ht 175.3 cm; Wt 73.5 kg
[2018-02-23] MEDS ORDERED: FUROSEMIDE INJ 40 MG in SYRINGE 0 ML IV SCH (21:00)
[2018-02-23] MEDS ORDERED: IV FLUIDS COMPLETED PRN (21:15)
[2018-02-23] MEDS: OMEGA-3 (PURIFIED FISH OIL) 1 GM CAP PO SCH (21:54)
[2018-02-23] MEDS: RANITIDINE HCL 150 MG TAB PO SCH (21:55)
[2018-02-23] MEDS ORDERED: NURSING VERBAL MED ORDER ONE (22:45)
[2018-02-24] VITALS (10 sets, daily range): BP systolic 90–120; BP diastolic 60–80; PULSE 65–81; TEMP 36.5–36.7; O2SAT 93–98
[2018-02-24 01:19] LABS: CKMB 3.2 ng/ml (0.5-3.6)
[2018-02-24 08:28] LABS: BLOOD UREA NITROGEN 19 mg/dl (7-18); CALCIUM 8.9 mg/dl (8.5-10.1); CARBON DIOXIDE 29 mmol/L (21-32); CREATININE 1.08 mg/dl (0.60-1.40); GLUCOSE 81 mg/dl (70-99); POTASSIUM 4.1 mmol/L (3.5-5.1); SODIUM 140 mmol/L (136-145)
[2018-02-24 08:33] LABS: CKMB 2.5 ng/ml (0.5-3.6)
[2018-02-24] MEDS: PANTOprazole SOD 40 MG TAB PO SCH (08:34)
[2018-02-24] MEDS: MULTIVITAMIN TAB PO SCH (08:34)
[2018-02-24] MEDS: FUROSEMIDE INJ 40 MG in SYRINGE 0 ML IV SCH ×2 (08:34→18:54)
[2018-02-24] MEDS: OMEGA-3 (PURIFIED FISH OIL) 1 GM CAP PO SCH ×2 (08:34→20:53)
[2018-02-24] MEDS: METOPROLOL SUCC 50MG EXT REL TAB PO SCH (08:35)
[2018-02-24] MEDS: ENOXAPARIN 40 MG/0.4 ML SYR SC SCH (08:36)
[2018-02-24] MEDS ORDERED: ASPIRIN 81 MG ECTAB PO SCH ×2 (09:00→21:00)
[2018-02-24] MEDS ORDERED: ROSUVASTATIN CALCIUM 10 MG TAB PO SCH ×2 (09:00→21:00)
[2018-02-24] MEDS: MAGNESIUM OXIDE 400 MG TAB PO SCH ×2 (09:45→20:53)
[2018-02-24] MEDS: POTASSIUM CHLORIDE 20 MEQ TABCR PO SCH ×2 (09:45→20:53)
--- NOTE | 2018-02-24 11:17 | Hospitalist Progress Note ---
Hospitalist Progress Note Date of Service Feb 24, 2018. (Hawa Brown ., PAULINE) Subjective Pt evaluation today including: conversation w/ patient, physical exam, chart review, lab review, review of inpatient medication list Voiding: no voiding problems Mr. Conley continues to feel sob with small improvement. He has occasional cough , which is chronic, and clear sputum. He denies any chest pain. He does have chronic orthostasis. He has been on vacation prior to this admission and admits to eating out a lot, though he states that the spinneret cleaner at [facility] he had been to told him to liberalize his sodium intake to lessen the orthostasis. He had increase in lower extremity edema along with sob. He is usually fairly active and enjoys walking but has lately been unable to get much farther than crossing a parking lot. In December, while in [place], he and his had a flu like illness and went to an urgent care clinic where chest x ray showed that he had heart failure which is the first he has ever heard of his having the condition. On telemetry he has been A.fib up to the 150s but so far today has been 80s and 90s ROS Constitutional: no chills, aches, sweats or fever Respiratory: see HPI Cardiac: no chest pain, palpitations, edema, orthopnea or lightheadedness GI: no abdominal pain, nausea, vomiting, diarrhea or constipation : no dysuria or hesitancy Extremities: no joint pain or weakness Skin: no rash All other systems reviewed and negative (Hawa Brown .PAULINE) Medications Medications Administered Medications (Trade) Dose Ordered Sig/Neto Route Start Time Stop Time Status Last Admin Dose Admin Furosemide (Lasix Inj) 40 mg NOW STAT IV 02/23/18 17:55 02/23/18 17:57 DC 02/23/18 18:42 40 MG Enoxaparin Sodium (Lovenox Inj) 40 mg QAM SC 02/24/18 09:00 03/26/18 08:59 02/24/18 08:36 40 MG Aspirin (Ecotrin Tab) 81 mg QAM PO 02/24/18 09:00 02/24/18 09:00 DC 02/23/18 21:57 81 MG Fish Oil ([place]-3 (Purified Fish Oil) Cap) 1 gm BID PO 02/23/18 21:00 03/25/18 20:59 02/24/18 08:34 1 GM Metoprolol Succinate (Toprol Xl Tab) 200 mg DAILY PO 02/24/18 09:00 03/26/18 08:59 02/24/18 08:35 200 MG Prednisone (PredniSONE TAB) 5 mg QAM PO 02/24/18 09:00 03/26/18 08:59 02/24/18 08:34 5 MG Rosuvastatin Calcium (Crestor Tab) 5 mg QAM PO 02/24/18 09:00 02/24/18 09:00 DC 02/23/18 21:56 5 MG Ranitidine HCl (zANTac TAB) 150 mg HS PO 02/23/18 21:00 03/25/18 20:59 02/23/18 21:55 150 MG Furosemide 40 mg/ Syringe 4 ml @ 4 mls/min BID IV 02/24/18 09:00 03/25/18 20:59 02/24/18 08:34 4 MLS/MIN Pantoprazole Sodium (Protonix Tab) 40 mg QAM PO 02/24/18 09:00 03/26/18 08:59 02/24/18 08:34 40 MG Potassium Chloride (Klor-Con Tab) 20 meq BID PO 02/24/18 09:00 03/26/18 08:59 02/24/18 09:45 20 MEQ Magnesium Oxide (Mag-Ox Tab) 400 mg BID PO 02/24/18 09:00 03/26/18 08:59 02/24/18 09:45 400 MG (Hawa Brown, PAULINE) Objective Vital Signs Date Time Temp Pulse Resp B/P (MAP) Pulse Ox O2 Delivery O2 Flow Rate FiO2 02/24/18 08:01 93 Room Air 02/24/18 07:42 36.6 81 18 120/80 (93) 93 Room Air 02/24/18 04:00 Room Air 02/24/18 04:00 36.5 72 20 116/74 (88) 94 Room Air 02/24/18 00:00 36.6 79 20 110/75 (87) 98 Room Air 02/23/18 23:28 Room Air 02/23/18 20:31 36.6 89 18 101/41 95 Room Air 02/23/18 19:32 74 20 112/77 96 Room Air 02/23/18 17:46 63 20 125/79 99 Room Air 02/23/18 16:22 80 20 129/85 98 Room Air 02/23/18 13:53 96 Room Air 02/23/18 13:52 36.4 92 18 105/74 95 Room Air (Hawa Brown CRNP) Physical Exam Notes: General: no distress Eyes: normal inspection, PERLL Respiratory: chest non tender, fine crackles right base otherwise clear to auscultation, no respiratory distress, no accessory muscle use Cardiac: irregular rate and rhythm, no rub or gallop, no murmur, +1 pitting edema in lower extremities GI/: active bowel sounds, no abd pain or tenderness, soft, non distended Extremities: normal range of motion, normal strength, non tender Neuro/Psych: alert and oriented x 3, normal mood and affect Skin: normal color, dry (Hawa Brown CRNP) Laboratory Results Last 24 Hours Test 02/23/18 16:40 02/24/18 00:00 02/24/18 00:15 02/24/18 07:50 White Blood Count 9.78 K/uL Red Blood Count 4.41 M/uL Hemoglobin 14.1 g/dL Hematocrit 42.2 % Mean Corpuscular Volume 95.7 fL Mean Corpuscular Hemoglobin 32.0 pg Mean Corpuscular Hemoglobin Concent 33.4 g/dl Platelet Count 110 K/uL Mean Platelet Volume 9.9 fL Neutrophils (%) (Auto) 83.8 % Lymphocytes (%) (Auto) 11.9 % Monocytes (%) (Auto) 3.5 % Eosinophils (%) (Auto) 0.3 % Basophils (%) (Auto) 0.2 % Neutrophils # (Auto) 8.20 K/uL Lymphocytes # (Auto) 1.16 K/uL Monocytes # (Auto) 0.34 K/uL Eosinophils # (Auto) 0.03 K/uL Basophils # (Auto) 0.02 K/uL RDW Standard Deviation 57.5 fL RDW Coefficient of Variation 16.4 % Immature Granulocyte % (Auto) 0.3 % Immature Granulocyte # (Auto) 0.03 K/uL Prothrombin Time 13.1 SECONDS Prothromb Time International Ratio 1.3 Activated Partial Thromboplast Time 30.1 SECONDS Partial Thromboplastin Ratio 1.2 Sodium Level 140 mmol/L 140 mmol/L Potassium Level 4.0 mmol/L 4.1 mmol/L Chloride Level 105 mmol/L 104 mmol/L Carbon Dioxide Level 28 mmol/L 29 mmol/L Anion Gap 7.0 mmol/L 6.0 mmol/L Blood Urea Nitrogen 18 mg/dl 19 mg/dl Creatinine 1.10 mg/dl 1.08 mg/dl Est Creatinine Clear Calc Drug Dose 65.2 ml/min 66.4 ml/min Estimated GFR () 80.1 81.9 Estimated GFR (Non- 69.1 70.6 BUN/Creatinine Ratio 16.1 17.2 Random Glucose 88 mg/dl 81 mg/dl Calcium Level 8.8 mg/dl 8.9 mg/dl Magnesium Level 2.0 mg/dl Total Bilirubin 1.3 mg/dl Direct Bilirubin 0.3 mg/dl Aspartate Amino Transf (AST/SGOT) 29 U/L Alanine Aminotransferase (ALT/SGPT) 26 U/L Alkaline Phosphatase 66 U/L Total Creatine Kinase 139 U/L Creatine Kinase MB 4.3 ng/ml 3.2 ng/ml 2.5 ng/ml Creatine Kinase MB Ratio 3.1 Troponin I 0.027 ng/ml 0.031 ng/ml 0.040 ng/ml Pro-B-Type Natriuretic Peptide 3639 pg/ml Total Protein 7.7 gm/dl Albumin 3.7 gm/dl Thyroid Stimulating Hormone (TSH) 1.330 uIu/ml Hepatitis C Antibody Screen NEG (Hawa Brown CRNP) Assessment and Plan Patient is a pleasant 67 y/o male, with PMHx of CREST scleroderma, interstitial pulmonary fibrosis, Raynaud's, permanent a.fib, HLD, and GERD, who presented to the ED because of progressive SOB w/ exertion x2 weeks. CHF exacerbation, unsure of type: - Trend cardiac enzymes - wnl x3 - EKG QAM and PRN for chest pain - prolonged QT, avoid medications that may exacerbate this - O2 protocol - IV Lasix 40 mg BID - Monitor I&Os and daily weights- base weight 165-170lbs - ECHO in 2017- preserved EF, no diastolic dysfunction noted - awaiting repeat Echo - BNP elevated at 3600 on admission - Bilateral venous Doppler- negative for DVT - Consult cardiology, appreciate recommendations Permanent a.fib- rate controlled, HLD: Continue Metoprolol 200 mg daily, ASA daily, Crestor 5 mg daily, Fish Oil - We did discuss anticoagulation NOAC vs Coumadin and risk vs benefit - patient is considering and will discuss with cardiology CREST scleroderma, interstitial pulmonary fibrosis: Continue Prednisone 5 mg daily Raynaud's: Continue Nifedipine 10 mg daily PRN GERD: Continue Nexium and Zantac DVT prophylaxis: Lovenox SQ daily Code status: LEVEL I, FULL Dispo: From home, lives w/ - no discharge needs anticipated (Hawa Brown ., PAULINE) Attending Attestation - Pt seen/examined, chart reviewed, care plan d/w PAULINE Hernandezah Stephanie. I agree w/ the corona components of her documentation. Pt feels markedly better w/ dyspnea. Weight is almost back to his dry weight of 165#. He was never told by his doctors at [facility] that he had CHF. Also mentions he gets thigh cramps/charley horses when he walks long distances. 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 Diaz who will see him in the am he has had a copious/brisk diuresis overnight and is near his dry weight - will give his evening lasix tonight and place AM dose on hold until renal function and volume status is reassessed tomorrow a. fib with decent rate control today - cont BB he is willing to consider anticoagulation at this time thigh cramps - consider outpatient arterial dopplers numerous questions answered today Rolf Landa MD (Rolf Landa MD)
--- NOTE | 2018-02-24 12:05 | ECHOCARDIOGRAM REPORT ---
*NOTICE TO RECEIVING LIBERTARIAN AGENCY This information is strictly Confidential and protected under [place] law. [place] law prohibits you from making any further disclosure of this information unless further disclosure is expressly permitted by the written consent of the person to whom it pertains or is authorized by law. A general authorization for the release of medical or other information is not sufficient for this purpose. Hospital accepts no responsibility if the information is made available to any other person, INCLUDING THE PATIENT. Interpretation Summary * Name: HUGO MILLER Study Date: 02/24/2018 07:34 AM BP: 116/74 mmHg * Patient Location: .[facility]\S\N282\S\2 HR: 72 * : 1950 (M/d/yyyy) Gender: Male Height: 69 in * Age: 67 yrs Ethnicity: [place] Weight: 177 lb * Ordering Physician: Magnolia Penaloza * Referring Physician: Raymon Diaz * Performed By: Floridalma Raymundo RDCS * * Reason For Study: Congestive Heart Failure * BSA: 2.0 m2 * -- Conclusions -- * 1. Normal LV size. Normal LV wall thickness. * 2. Mild global LV dysfunction. LVEF 45-50%. Flattened septum consistent with RV volume overload. * 3. Moderately dilated RV with moderate RV dysfunction. * 4. Severe right atrial enlargement. * 5. Moderate tricuspid regurgitation (atrial displacement of the septal leaflet, consider Ebstein anomaly) * 6. Mild mitral valve prolapse with mild mitral regurgitation. * 7. Borderline pulmonary hypertension. Estimated PASP 35-40 mmHg. Estimated RA 8 mmHg * 8. No prior studies for comparison. Procedure Details * A complete two-dimensional transthoracic echocardiogram was performed (2D, M-mode, Doppler and color flow Doppler). Left Ventricle * The left ventricle is grossly normal size. * There is normal left ventricular wall thickness. * Ejection Fraction = 45-50%. * Flattened septum is consistent with RV volume overload. * There is mild global hypokinesis of the left ventricle. Right Ventricle * The right ventricle is moderately dilated. * The right ventricular systolic function is moderately reduced. Atria * The left atrial size is normal. * The right atrium is severely dilated. * No ASD detected; PFO is not assessed. Mitral Valve * The mitral valve is grossly normal. * There is mild mitral valve prolapse. * There is no mitral valve stenosis. * There is mild mitral regurgitation. Tricuspid Valve * Apical leaflet displacement raises possibility of Ebstein's anomaly. * There is no tricuspid stenosis. * There is moderate tricuspid regurgitation. Aortic Valve * The aortic valve opens well. * Aortic valve sclerosis mild, without significant aortic valvular stenosis. * The aortic valve is trileaflet. * No hemodynamically significant valvular aortic stenosis. Pulmonic Valve * The pulmonary valve is inadequately visualized, but the Doppler data is adequate for interpretation. * There is no pulmonic valvular stenosis. * Trace pulmonic valvular regurgitation. Great Vessels * The aortic root and proximal ascending aorta are normal sized. Pericardium/Pleural * There is no pericardial effusion. Great Vessels * IVC < 2.1, < 50% change with respiration. Est RA 8 mmHg. Borderline pulmonary hypertension. Est PASP 35-40 mmHg. MMode 2D Measurements and Calculations IVSd 1.0 cm IVSs 1.2 cm LVIDd 4.9 cm LVIDs 4.2 cm LVPWd 0.67 cm LVPWs 1.3 cm IVS/LVPW 1.5 FS 13.9 % EDV(Teich) 112.8 ml ESV(Teich) 79.4 ml EF(Teich) 29.6 % EDV(cubed) 117.6 ml ESV(cubed) 75.1 ml EF(cubed) 36.2 % % IVS thick 13.8 % % LVPW thick 94.6 % LV mass(C)d 142.1 grams LV mass(C)dI 72.5 grams/m\S\2 LV mass(C)s 188.2 grams LV mass(C)sI 96.0 grams/m\S\2 SV(Teich) 33.4 ml SI(Teich) 17.0 ml/m\S\2 SV(cubed) 42.6 ml SI(cubed) 21.7 ml/m\S\2 Ao root diam 3.4 cm Ao root area 9.0 cm\S\2 ACS 1.8 cm LA dimension 4.3 cm LA/Ao 1.3 LVAd ap4 27.6 cm\S\2 LVLd ap4 8.7 cm EDV(MOD-sp4) 80.7 ml EDV(sp4-el) 74.5 ml LVAs ap4 20.4 cm\S\2 LVLs ap4 7.2 cm ESV(MOD-sp4) 50.4 ml ESV(sp4-el) 48.8 ml EF(MOD-sp4) 37.6 % EF(sp4-el) 34.6 % LVAd ap2 33.1 cm\S\2 LVLd ap2 7.7 cm EDV(MOD-sp2) 123.6 ml EDV(sp2-el) 120.9 ml LVAs ap2 27.5 cm\S\2 LVLs ap2 8.0 cm ESV(MOD-sp2) 85.1 ml ESV(sp2-el) 80.1 ml EF(MOD-sp2) 31.2 % EF(sp2-el) 33.7 % LVLd %diff -13.18 % EDV(MOD-bp) 105.0 ml LVLs %diff 9.6 % ESV(MOD-bp) 68.0 ml EF(MOD-bp) 35.2 % SV(MOD-sp4) 30.3 ml SI(MOD-sp4) 15.5 ml/m\S\2 SV(MOD-sp2) 38.6 ml SI(MOD-sp2) 19.7 ml/m\S\2 SV(MOD-bp) 36.9 ml SI(MOD-bp) 18.8 ml/m\S\2 SV(sp4-el) 25.7 ml SI(sp4-el) 13.1 ml/m\S\2 SV(sp2-el) 40.7 ml SI(sp2-el) 20.8 ml/m\S\2 Doppler Measurements and Calculations MV E max sally 67.9 cm/sec MV dec time 0.18 sec Ao V2 max 76.0 cm/sec Ao max PG 2.3 mmHg Ao max PG (full) 0.93 mmHg LV V1 max PG 1.4 mmHg LV V1 max 58.7 cm/sec PA V2 max 58.6 cm/sec PA max PG 1.4 mmHg TR max sally 223.7 cm/sec
[2018-02-24] MEDS ORDERED: NURSING VERBAL MED ORDER ONE (18:30)
[2018-02-24] MEDS: RANITIDINE HCL 150 MG TAB PO SCH (20:53)
[2018-02-25] VITALS: BP 102/74; PULSE 78; TEMP 36.6; O2SAT 96
[2018-02-25 04:09] VITALS: BP 108/67; PULSE 77; TEMP 36.5; O2SAT 98
[2018-02-25 07:23] VITALS: BP 103/72; PULSE 72; TEMP 36.3; O2SAT 96
[2018-02-25 07:41] LABS: CALCIUM 9.4 mg/dl (8.5-10.1); CREATININE 1.25 mg/dl (0.60-1.40); POTASSIUM 4.2 mmol/L (3.5-5.1)
[2018-02-25] MEDS: POTASSIUM CHLORIDE 20 MEQ TABCR PO SCH (07:51)
[2018-02-25] MEDS: PANTOprazole SOD 40 MG TAB PO SCH (07:51)
[2018-02-25] MEDS: OMEGA-3 (PURIFIED FISH OIL) 1 GM CAP PO SCH (07:51)
[2018-02-25] MEDS: MAGNESIUM OXIDE 400 MG TAB PO SCH (07:51)
[2018-02-25] MEDS: MULTIVITAMIN TAB PO SCH (07:51)
[2018-02-25] MEDS: METOPROLOL SUCC 50MG EXT REL TAB PO SCH (07:52)
[2018-02-25] MEDS: ENOXAPARIN 40 MG/0.4 ML SYR SC SCH (07:52)
[2018-02-25] MEDS ORDERED: FUROSEMIDE 40 MG TAB PO SCH (09:30)
--- NOTE | 2018-02-25 10:09 | CARDIOLOGY CONSULTATION ---
DATE OF CONSULTATION: 02/25/2018 TIME: 8:52 a.m. CONSULTING PHYSICIAN: Jessika Mcdonald MD. REASON FOR CONSULTATION: CHF, atrial fibrillation. HISTORY OF PRESENT ILLNESS: Mr. Conley is a pleasant 67-year-old gentleman with history significant for permanent atrial fibrillation who has declined anticoagulation therapy, history of tachycardia-induced cardiomyopathy, pulmonary fibrosis, Raynaud's disease and scleroderma. He was admitted to [facility] on 02/23/2018 with shortness of breath, abdominal bloating, and edema. He spends winter months in [place] and noticed that he has chronic dyspnea with exertion while climbing inclines has worsened. Over the past 2 weeks, he noticed that he could only walk 1 city block on flat surface before he had to stop to catch his breath. His edema increased in his lower extremities. He chronically had trace edema. He also noted that he would get very bloated with eating even small amounts of food. Because of these symptoms, he came to the Emergency Department and his heart was diagnosed with heart failure and given intravenous diuretics. He has diuresed well over the past 2 days, although yesterday's fluid balance does not appear to be complete. He confirms that he urinated significant amount yesterday as well. He feels back to his baseline and is hoping to go home soon. He had been experiencing paroxysmal nocturnal dyspnea which has since resolved with diuresis. He sleeps on a wedge chronically secondary to acid reflux for the past several years and therefore denied orthopnea. He has had increased palpitations that would last 10-15 seconds and occur at any time. He has had palpitations chronically but he has noted more of them when he was hypervolemic. He denied chest discomfort at any time. He denies fevers, chills, abdominal pain, nausea, vomiting, diarrhea, melena, hematochezia, hematuria, or other bleeding. He admits that he does not maintain a low sodium diet. He remembers being told in the past by prior mica plate layer hand to eat more sodium due to hypotension. He has not been weighing himself daily as he has never been diagnosed with heart failure before. REVIEW OF SYSTEMS: As above and review of systems otherwise negative/unremarkable. PAST MEDICAL HISTORY: 1. CREST scleroderma. 2. Atrial fibrillation, and has declined anticoagulation. 3. Dyslipidemia. 4. Interstitial pulmonary fibrosis. 5. Raynaud's disease. 6. GERD. 7. Varicose veins. 8. History of tachycardia-induced cardiomyopathy with reported normalized LV systolic function. HOME MEDICATIONS: Included metoprolol succinate 200 mg daily, prednisone 5 mg daily, aspirin 81 mg daily. Please see H&P for full list. INPATIENT MEDICATIONS: Have included Lasix 40 mg IV b.i.d., aspirin 81 mg daily, metoprolol succinate 200 mg daily, magnesium oxide 400 mg p.o. b.i.d., Protonix 40 mg daily, potassium chloride 20 mEq b.i.d., prednisone 5 mg daily, Crestor 5 mg at bedtime. ALLERGIES: IBUPROFEN. SOCIAL HISTORY: Denies tobacco or drug abuse. Occasional alcohol. He is and lives with his . One daughter. He is currently alone in his hospital room. FAMILY HISTORY: Mother with atrial fibrillation. Father at age of 54 during CABG. Sister had [place] in her 60s. Brother, CAD at 62. PHYSICAL EXAMINATION: VITAL SIGNS: Temperature 36.3 degrees, heart rate 72 beats per minute, respiration rate 18, blood pressure 103/72 mmHg, oxygen saturation 96% on room air. I's and O's yesterday are incomplete. He was negative 3.4 liters on his initial evening here. His weight has decreased from 76.4 kilograms down to 73.5 kg. GENERAL: No acute distress. He is alert and oriented. HEENT: Anicteric sclerae. NECK: No appreciable JVD. No bruits. Normal carotid upstrokes bilaterally. No hepatojugular reflux. CARDIAC EXAM: No ventricular heave. PMI was nonpalpable. Irregularly irregular, normal S1, S2. There were no audible murmurs, rubs or gallops. LUNGS: Clear to auscultation bilaterally without wheezes, rales or rhonchi. ABDOMEN: Soft, nontender, nondistended. Normoactive bowel sounds, no bruits noted. EXTREMITIES: Trace bilateral lower extremity edema. No cyanosis. 2+ radial pulses bilaterally. 2+ dorsalis pedis pulses bilaterally. PSYCHIATRIC: Affect appears appropriate. LABORATORY DATA: White blood cell count is 9.78, hemoglobin 14.1, platelets 110. Sodium 140, potassium 4.2, BUN 22, creatinine 1.25. Peak troponin was 0.04, which is not significantly elevated. TSH 1.33, albumin 3.7. ProBNP 3639. Echocardiogram performed on 02/24/[address] Amador, mildly reduced LV systolic function with an EF of 45-50%. Flattened septum consistent with right ventricular volume overload. Moderately dilated right ventricle with moderately reduced systolic function. Severe right atrial dilation. Moderate TR. Mild mitral regurgitation. Atrial displacement of the septal leaflet. Consider Ebstein anomaly. Echo images personally reviewed, especially in regards to the tricuspid valve. The tricuspid displacement index by body surface area was less than 8 mm/m2 with a value of 6.5 and therefore not likely Ebstein anomaly. Chest x-ray, mild congestive failure per radiology. Chest x-ray imaging personally reviewed. No obvious infiltrate. Increased vascular markings. Small pleural effusion. ECG personally reviewed. ECG from 02/25/2018 at 7:19 a.m., atrial fibrillation at 69 beats per minute. ASSESSMENT AND PLAN: 1. Acute systolic congestive heart failure/ acute on chronic cor pulmonale: He has right ventricle dilation and dysfunction and also mild left ventricle systolic dysfunction. He presented hypervolemic and is improved with diuresis. We discussed the diagnosis in detail. We recommend Lasix 40 mg p.o. daily on discharge. Close heart failure followup recommended. We discussed in detail the importance of a low sodium diet, less than 2000 mg daily. Recommended that he weigh himself daily and keep track of his weights to bring to his appointments. He appears euvolemic currently. 2. Cardiomyopathy: He does have a reduced left ventricle systolic function. We discussed possible etiologies. Consider ischemic evaluation such as cardiac catheterization and right heart catheterization given his cor pulmonale. He declines invasive measures at this time. Risks and benefits were discussed with him. Can consider outpatient myocardial perfusion study. He has not presented with any anginal symptoms. Continue metoprolol succinate. Can consider HUNG inhibitor; however, with his right heart failure, he may be preload dependent and has had issues with hypotension in the past and has had mild hypotension while hospitalized. We will hold off on HUNG inhibitor for now, but can be considered in the future if tolerated and appropriate at that time. 3. Atrial fibrillation: His heart rate is adequately controlled. Telemetry was reviewed. Continue metoprolol succinate. We once again discussed stroke risk reduction and he has elevated CHADS VASc score, especially with the new diagnosis of heart failure. He continues to decline anticoagulation. We did discuss options such as Coumadin and the novel oral anticoagulation options in detail. He will continue to think about it and discuss with his . 4. Tricuspid regurgitation: He has moderate tricuspid regurgitation which may appear improved after diuresis. We will repeat echo in the future to also reevaluate his systolic function. He does not appear to have Ebstein's anomaly. The tricuspid apical displacement corrected for body surface area. It was less than 8 mm/m2 with a value of 6.5 mm per meters squared which would suggest that he does not have Ebstein's anomaly. 5. Disposition: He would like to be discharged home and from a cardiac perspective, would be ready for discharge today if no further acute issues. Close follow up in heart failure clinic recommended and is being arranged through the cardiology office. The patient's care has been discussed with Dr. Mcdonald of the primary hospitalist service. Sixty minutes time spent counseling patient and coordinating care, reviewing echo imaging and also reviewing the chart, and discussing with primary service. Thank you for allowing me to participate in the care of Mr. Conley.
[2018-02-25] MEDS ORDERED: ROSU5TAB PO (10:17)
[2018-02-25] MEDS ORDERED: RANI150T3 PO (10:18)
[2018-02-25] MEDS ORDERED: LSX40 PO (10:18)
--- NOTE | 2018-02-25 10:21 | Discharge Instructions ---
Discharge Instructions Date of Service Feb 25, 2018. Admission Reason for Admission: Congestive Heart Failure, Dyspnea On Exertion Discharge Discharge Diagnosis / Problem: Congestive heart failure Discharge Goals Goal(s): Decrease discomfort, Improve function, Improve disease control, Learn about illness, Diagnostic testing, Therapeutic intervention, Prevent Disease Progression Activity Recommendations Activity Limitations: resume your previous activity . Instructions / Follow-Up Instructions / Follow-Up Congestive heart failure ("fluid overload"): Lasix 40 mg daily Potassium chloride supplement 10 mEq daily Keep daily log of weights and take to cardiology follow-up appointment Follow low sodium diet Resume all other regular home medications as prescribed FOLLOW-UPS: Please follow-up with your PCP within 5-7 days Please follow-up with Cardiology within 1 week Please follow-up/keep all of your subspecialty appointments Call 911 and go to the Emergency Room if: * You have tightness or pain in your chest that does not go away with rest or Nitroglycerin * You are very short of breath even with rest Call your doctor if any of the following symptoms or problems start or get worse : * Shortness of breath or difficulty breathing * Wake up at night short of breath * Chest pain * Cough * Swelling of your hands, fee, or legs * More fatigued or tired with your normal activity * Palpitations - sudden fast heart beats WEIGHT * Weigh yourself every morning after using the bathroom. * Use the same scale. * Wear the same amount of clothing. * Write your weight down on your chart. * Call your doctor if you gain more than 2-3 pounds in 1-2 days. MEDICATIONS * Use this discharge instruction sheet for instructions. * Take your medications at the time your doctor ordered. * Do not skip a dose of your medicines. * If you miss a dose of medicine, take as soon as possible, but DO NOT DOUBLE A DOSE. * Read your medicine information when you get home. * Know all of the side effects of your medicine. * Call your doctor's office if you have any side effects. * Be sure all of your doctors know what medicine and herbs you take (including cold, flu, and herbal medicine). * Pain Medicine: If you do not get relief from your pain, please call your doctor for help. Take the following with you to your follow-up doctor appointments: * Weight Chart * Medication List * List of questions Do not drink excessive alcohol, beer or wine. Current Hospital Diet Patient's current hospital diet: AHA Diet (Heart Healthy), Low Sodium Diet (2gm Na) Discharge Diet Recommended Diet: AHA Diet (Heart Healthy), Low Sodium Diet (2gm Na) Fluid Restriction: 2000 ml (8 cups) Pending Studies Studies pending at discharge: no Medical Emergencies . Who to Call and When: Medical Emergencies: If at any time you feel your situation is an emergency, please call 911 immediately. . Non-Emergent Contact Non-Emergency issues call your: Primary Care Provider, Scrap Dealer Call Non-Emergent contact if: you have any medication questions . . "Provider Documentation" section prepared by Magnolia Penaloza. .
--- NOTE | 2018-02-25 10:31 | Discharge Summary ---
Discharge Summary Date of Service Feb 25, 2018. Discharge Summary Admission Date: Feb 23, 2018 at 19:05 Discharge Date: Feb 25, 2018 Discharge Disposition: Home Principal Diagnosis: Systolic CHF excerbation Problems/Secondary Diagnoses: Acute systolic CHF exacerbation tricuspid regurgitation tachycardia-induced cardiomyopathy cor pulmonale Permanent a.fib CREST scleroderma interstitial pulmonary fibrosis Raynaud's GERD Procedures: ECHO: Interpretation Summary * Name: HUGO MILLER Study Date: 02/24/2018 07:34 AM BP: 116/74 mmHg * Patient Location: [facility]\S\N282\S\2 HR: 72 * : 1950 (M/d/yyyy) Gender: Male Height: 69 in * Age: 67 yrs Ethnicity: [place] Weight: 177 lb * Ordering Physician: Magnolia Penaloza * Referring Physician: Raymon Diaz * Performed By: Floridalma Raymundo RDCS * * Reason For Study: Congestive Heart Failure * BSA: 2.0 m2 * -- Conclusions -- * 1. Normal LV size. Normal LV wall thickness. * 2. Mild global LV dysfunction. LVEF 45-50%. Flattened septum consistent with RV volume overload. * 3. Moderately dilated RV with moderate RV dysfunction. * 4. Severe right atrial enlargement. * 5. Moderate tricuspid regurgitation (atrial displacement of the septal leaflet, consider Ebstein anomaly) * 6. Mild mitral valve prolapse with mild mitral regurgitation. * 7. Borderline pulmonary hypertension. Estimated PASP 35-40 mmHg. Estimated RA 8 mmHg * 8. No prior studies for comparison. Procedure Details * A complete two-dimensional transthoracic echocardiogram was performed (2D, M-mode, Doppler and color flow Doppler). Left Ventricle * The left ventricle is grossly normal size. * There is normal left ventricular wall thickness. * Ejection Fraction = 45-50%. * Flattened septum is consistent with RV volume overload. * There is mild global hypokinesis of the left ventricle. Right Ventricle * The right ventricle is moderately dilated. * The right ventricular systolic function is moderately reduced. Atria * The left atrial size is normal. * The right atrium is severely dilated. * No ASD detected; PFO is not assessed. Mitral Valve * The mitral valve is grossly normal. * There is mild mitral valve prolapse. * There is no mitral valve stenosis. * There is mild mitral regurgitation. Tricuspid Valve * Apical leaflet displacement raises possibility of Ebstein's anomaly. * There is no tricuspid stenosis. * There is moderate tricuspid regurgitation. Aortic Valve * The aortic valve opens well. * Aortic valve sclerosis mild, without significant aortic valvular stenosis. * The aortic valve is trileaflet. * No hemodynamically significant valvular aortic stenosis. Pulmonic Valve * The pulmonary valve is inadequately visualized, but the Doppler data is adequate for interpretation. * There is no pulmonic valvular stenosis. * Trace pulmonic valvular regurgitation. Great Vessels * The aortic root and proximal ascending aorta are normal sized. Pericardium/Pleural * There is no pericardial effusion. Great Vessels * IVC < 2.1, < 50% change with respiration. Est RA 8 mmHg. Borderline pulmonary hypertension. Est PASP 35-40 mmHg. ULTRASOUND VENOUS DOPPLER LWR EXT BILA CLINICAL HISTORY: bilateral lower leg swelling recent travel [place] COMPARISON STUDY: No previous studies for comparison. FINDINGS: Real-time and color flow Doppler imaging were performed. Flow was seen within the femoral, popliteal and calf veins with no intraluminal thrombus demonstrated. The saphenous vein is patent. There is a 13 x 25 x 7 mm left popliteal cyst. IMPRESSION: No evidence of lower extremity DVT. Electronically signed by: Deep Main M.D. 02/23/2018 5:31 PM Dictated Date/Time: 02/23/2018 5:30 PM The status of this report is Signed. Draft = Not yet reviewed or approved by Radiologist. Signed = Reviewed and approved by Radiologist. CHEST ONE VIEW PORTABLE CLINICAL HISTORY: Shortness of breath. COMPARISON STUDY: No previous studies for comparison. FINDINGS: The heart is enlarged. There is elevation of the interstitium consistent with mild interstitial edema. There is blunting of the right lateral costophrenic angle suggesting a small effusion. There is no lobar consolidation.[ IMPRESSION: Cardiomegaly and radiographic evidence of mild congestive failure/fluid overload with small right pleural effusion Electronically signed by: Deep Main M.D. 02/23/2018 4:38 PM Dictated Date/Time: 02/23/2018 4:37 PM The status of this report is Signed. Draft = Not yet reviewed or approved by Radiologist. Signed = Reviewed and approved by Radiologist Consultations: Cardiology- Dr. Diaz Medication Reconciliation New Medications: Potassium Chloride (Klor-Con M20) 20 Meq Tabcr 10 MEQ PO DAILY for 30 Days, #15 TAB Furosemide (Furosemide) 40 Mg Tab 40 MG PO QAM for 30 Days, #30 TAB Continued Medications: Aspirin (Aspirin Ec) 81 Mg Tab 81 MG PO QAM Coenzyme Q10 (Ubidecarenone) (Coq-10) 50 Mg Cap 50 MG PO BID Esomeprazole Magnesium (Nexium) 40 Mg Capcr 40 MG PO DAILY Fish Oil ([place]-3) 1 Ea Cap 1 CAP PO BID Metoprolol Succinate (Toprolxl (Toprol-Xl) 200 Mg Tabcr 200 MG PO DAILY, TAB Multivitamin (Multivitamin) Tab 1 TAB PO QAM Nifedipine (Nifedipine) 10 Mg Cap 1 CAP PO DAILY PRN for WINTER MONTHS Polyethylene Glycol-Propylene (Systane) 1 Thania Thania 1 DROPS OP QID PRN for DRY EYES Prednisone (Prednisone) 5 Mg Tab 5 MG PO QAM Ranitidine Hcl (Zantac) 150 Mg Tab 1 TAB PO HS for 90 Days, TAB 3 Refills Rosuvastatin Calcium (Crestor) 5 Mg Tab 1 TAB PO DAILY for 30 Days, #30 TAB 5 Refills Discharge Exam Review of Systems: Constitutional: No fever, No chills, No sweats, No weakness, No fatigue Eyes: No worsening of vision ENT: No hearing loss Respiratory: No cough, No shortness of breath, No hemoptysis Cardiovascular: + palpitations (with ambulation- chronic issue), No chest pain, No edema Abdomen: No pain, No nausea, No vomiting, No diarrhea, No constipation Musculoskeletal: No joint pain, No muscle pain, No swelling, No calf pain Genitourinary - Male: No hematuria, No dysuria Neurologic: No weakness, No numbness/tingling Psychiatric: No depression symptoms, No anxiety Endocrine: No fatigue Hematologic / Lymphatic: No abnormal bleeding/bruising Integumentary: No rash, No itch, No new/changing skin lesions Physical Exam: General Appearance: no apparent distress Eyes: normal inspection, PERRL ENT: hearing grossly normal Neck: supple Respiratory/Chest: lungs clear, no respiratory distress, no accessory muscle use Cardiovascular: + irregularly irregular (rate controlled) Abdomen / GI: normal bowel sounds, non tender, soft Extremities: no calf tenderness, no pedal edema Neurologic/Psychiatric: alert, normal mood/affect, oriented x 3 Skin: normal color, warm/dry, no rash Hospital Course Patient is a pleasant 67 y/o male, with PMHx of CREST scleroderma, interstitial pulmonary fibrosis, Raynaud's, permanent a.fib, HLD, and GERD, who presented to the ED because of progressive SOB w/ exertion x2 weeks. Acute systolic CHF exacerbation: - Admit to tele for cardiac monitoring- no acute events - Trend cardiac enzymes- negative - EKG QAM and PRN for chest pain - O2 protocol- on RA - IV Lasix 40 mg BID- transitioned to PO Lasix 40 mg daily per cardiology recommendations - KCL 10 mEq daily - Monitor I&Os and daily weights- negative 3.2L - ECHO- EF 45-50%, pulmonary HTN , moderate RV systolic dysfunction - Bilateral venous Doppler- negative for DVT - Consult cardiology, appreciate recommendations: -- Stable for discharge -- Lasix 40 mg po daily -- Recommended anticoagulation and heart cath to due to cor pulmonale/ decreased EF- declined at this time but will consider in future -f/u Cardiology this coming Friday Permanent a.fib- rate controlled at rest but easily goes to the 150s with walking, HLD: -Continue Metoprolol 200 mg daily, ASA daily, Crestor 5 mg daily, Fish Oil -considering anticoagulation as above CREST scleroderma, interstitial pulmonary fibrosis: Continue Prednisone 5 mg daily -follows with Rheum and Pulm Raynaud's: Continue Nifedipine 10 mg daily PRN GERD: Continue Nexium and Zantac DVT prophylaxis: Lovenox SQ daily Code status: LEVEL I, FULL Dispo: Discharge to home Total Time Spent: Greater than 30 minutes This includes examination of the patient, discharge planning, medication reconciliation, and communication with other providers. Discharge Instructions Please refer to the electronic Patient Visit Report (Discharge Instructions) for additional information. Follow-Up Please follow-up with your PCP within 5-7 days Please follow-up with Cardiology within 1 week Please follow-up/keep all of your subspecialty appointments Additional Copies To Wilda Gonzalez M.D.; Raymon Diaz MD Reviewed: Pt Seen/Exam by Me History Physician Breastfeeding Peer Counselor Supervision Note: I interviewed and examined the patient. Discussed with FABRICE Penaloza and agree with findings and plan as documented in the note. Any exceptions or clarifications are listed here: Patient presents with 2 weeks of progressively worsening shortness of breath, lower extremity edema. He reports several months of feeling lightheaded with standing. He denies any recent changes in his medications. He did recently travel to [place] and returned 2 days ago;his symptoms started gradually while he was on his trip. He denies any chest pain or pressure at all. He was found to have evidence of CHF on his chest x-ray with a small right pleural effusion, lower extremity edema. He was in rapid A. fib with minimal exertion with rates to the 130s, that resolved with rest back down to the 60s-70s. His proBNP was significantly elevated at 3600. He was not hypoxic. Found to have biventricular systolic CHF, evidence of Pulm HTN on ECHO, with LVEF 45% Diuresed quite briskly and had tremendous clinical improvement. Discussed RHC and LHC and he will consider as outpt, but may have Nuc Stress first for ischemic evaluation. COnsidering anticoagulation but continues to decline at this time. Stable for dc to home on po lasix. Not adding ACEI at this time due to borderline low BPs and is preload-dependent Vitals reviewed Gen: AAOx3, NAD HEENT: anicteric sclerae, EOMI CV: Irregularly irregular with normal rate no mgr nl S1S2 Pulm: Positive Velcro-like crackles at the bases butmid lung field crackles resolved from admission, no wheezes or rhonchi Abd: +BS soft NT ND no masses or hernias Ext: no LE edema whatsoever, no calf tenderness, negative Homans sign, 2+ DP pulses Skin: no rashes, warm/dry, shiny and taut skin of the lower extremities, no digital ulcerations noted Neuro: full strength throughout Documented By: Jessika Mcdonald
[2018-02-25] MEDS ORDERED: MCRK20 PO (10:37)
[2018-02-25 11:31] VITALS: BP 100/70; PULSE 75; TEMP 36.5; O2SAT 94
[2018-02-25] MEDS ORDERED: POTA10CA28 PO (12:04)
[2018-02-25 12:07] VITALS: BP 100/70; PULSE 75; TEMP 36.5; O2SAT 94
== END 2018-02-25 12:33 | disposition home or self-care (01) ==
LOC: C.EDB 13:42 → C.MED 19:05 → ENRESERV 19:07
PROVIDERS: ADMIT Family Medicine; ATTEND Internal Medicine
DX: I50.21 Acute systolic (congestive) heart failure (principal); I07.1 Rheumatic tricuspid insufficiency; R00.0 Tachycardia, unspecified; I42.9 Cardiomyopathy, unspecified; I27.81 Cor pulmonale (chronic); E78.5 Hyperlipidemia, unspecified; I48.2 Chronic atrial fibrillation; M34.9 Systemic sclerosis, unspecified; J84.10 Pulmonary fibrosis, unspecified; I73.00 Raynaud's syndrome without gangrene; K21.9 Gastro-esophageal reflux disease without esophagitis; I83.90 Asymptomatic varicose veins of unspecified lower extremity; Z79.82 Long term (current) use of aspirin; Z79.52 Long term (current) use of systemic steroids; Z82.49 Family history of ischemic heart disease and other diseases of the circulatory system; Z82.3 Family history of stroke

== ENCOUNTER → 2018-03-02 | Outpatient (CLI) | payer MEDICARE ==
[~2018-03-02] MED LIST changes: +COEN50CA9 PO; +LSX40 PO; -METO100T44 PO; +METO200T32 PO; +POTA10CA28 PO; +RANI150T3 PO; -RANI150T85 PO; +ROSU5TAB PO
[2018-03-02 18:02] LABS: ALT/SGPT 34 U/L (12-78); AST/SGOT 34 U/L (15-37); BLOOD UREA NITROGEN 21 mg/dl (7-18); CALCIUM 9.3 mg/dl (8.5-10.1); CARBON DIOXIDE 32 mmol/L (21-32); CREATININE 1.37 mg/dl (0.60-1.40); GLUCOSE 95 mg/dl (70-99); SODIUM 137 mmol/L (136-145)
== END | disposition home or self-care (01) ==
LOC: C.LABMFLN 14:59
PROVIDERS: ATTEND Internal Medicine Cardiovascular Disease
DX: E78.5 Hyperlipidemia, unspecified (principal); I50.9 Heart failure, unspecified

== ENCOUNTER → 2018-03-17 | Outpatient (CLI) | payer MEDICARE ==
[~2018-03-17] MED LIST changes: +REGADENOSON 0.4 MG/5 ML SYR ONE
--- NOTE | 2018-03-17 18:46 | Myocardial Perfusion Study ---
Myocardial Perfusion Study Rpt Myocardial Perfusion Study Rpt Date of Service 03/17/2018 Myocardial Perfusion Study Rpt Procedure: 1. Myocardial perfusion study performed in multiple views/images 2. Lexiscan pharmacologic stress ECG Indications: 1. Cardiomyopathy 2. Systolic CHF Consent: Informed written consent was obtained prior to the procedure. Ordering physician: Nancy Flores PA-C Procedural details: For the stress portion of the study, Lexiscan 0.4 mg was intravenously administered followed by a saline flush. This was followed by 32.6 mCi of technetium 99m Cardiolite, injected at 1:55 p.m. on 03/17/2018. 30 minutes following the injection, imaging of the heart was performed in multiple projections. For the rest portion of the study, 10.4 mCi technetium 99m Cardiolite was injected intravenously at 9:55 a.m. on 03/17/2018. 1 hour following the injection, imaging of the heart was performed in the same projections. Lexiscan stress ECG: Resting ECG demonstrated: Atrial fibrillation at 67 bpm. Nonspecific T-wave abnormality. Maximum heart rate: 83 bpm Resting blood pressure: 105/85 mmHg Maximum blood pressure: 105/85 mmHg Maximal, age-predicted heart rate: 54 % Significant ST changes: None Arrhythmia: Remained in atrial fibrillation throughout. Symptoms: Palpitations and nausea. No chest pain. Findings: Rotating raw imaging demonstrated no significant lung uptake. There is no significant motion artifact. Heart size appeared normal. Myocardial perfusion demonstrated a small area of mildly reduced uptake involving the base to mid inferoseptum, which appeared fixed in post stress and rest imaging. There were no significant reversible defects noted. Ejection fraction: 52 % Wall motion: Possible hypokinesis involving the base to mid inferoseptum. Other wall motion appeared normal. No significant transient ischemic dilation. Impression: 1. There were no ischemic changes suggested on myocardial perfusion study. 2. Small fixed defect involving the base to mid inferoseptum may represent small infarct. 3. Base to mid inferoseptum appears hypokinetic. 4. Low-normal left ventricular systolic function. EF 52%. 5. No chest pain. 6. Nondiagnostic Lexiscan ECG.
== END | disposition home or self-care (01) ==
LOC: C.NUCL 11:24
PROVIDERS: ATTEND Physician Assistant
DX: I42.9 Cardiomyopathy, unspecified (principal); I50.9 Heart failure, unspecified

== ENCOUNTER → 2018-03-30 | Outpatient (CLI) | payer MEDICARE ==
[~2018-03-30] MED LIST changes: -POTA10CA28 PO; -REGADENOSON 0.4 MG/5 ML SYR ONE
[2018-03-30 13:10] LABS: BLOOD UREA NITROGEN 22 mg/dl (7-18); CARBON DIOXIDE 32 mmol/L (21-32); CREATININE 1.13 mg/dl (0.60-1.40); GLUCOSE 94 mg/dl (70-99); POTASSIUM 3.7 mmol/L (3.5-5.1); SODIUM 141 mmol/L (136-145)
== END | disposition home or self-care (01) ==
LOC: C.LABMFLN 09:32
PROVIDERS: ATTEND Physician Assistant
DX: I50.9 Heart failure, unspecified (principal)